=== PATIENT | male | born 1985 | race Caucasian/White ===

== ENCOUNTER 2020-03-22 23:05 | Emergency (ER) | payer SELFPAY ==
[~2020-03-22 23:05] MED LIST: NS 0.9% w/ 40 MEQ KCL 1,000 ML BAG IV ONE
[2020-03-22] MEDS ORDERED: Morphine 10 MG/ML VIAL ONE (23:37)
[2020-03-22] MEDS ORDERED: Ondansetron PF 4 MG/2 ML Vial ONE (23:37)
[2020-03-22 23:50] LABS: Bilirubin Negative (Negative); Blood, Urine Large (Negative); Clarity Slightly Cloudy (Clear); Glucose, Urine (Dipstick) Negative (Negative); Ketone, Urine Negative (Negative); Leukocyte Negative (Negative); Nitrite Negative (Negative); Protein, Urine (Dipstick) Negative (Neg-Trace); Urobilinogen 0.2 mg/dL (Less than 2); pH, Urine 5.5 (5.0-9.0)
[2020-03-22 23:51] LABS: Specific Gravity, Urine 1.018 (1.002-1.036)
[2020-03-22 23:55] LABS: Bacteria/HPF Rare-Few HPF (None Seen); Squamous Epithelial 0-3 HPF (0-3); WBC/HPF 0-3 HPF (0-3)
[2020-03-22 23:57] LABS: ALT (SGPT) 17 U/L (8-55); AST (SGOT) 17 U/L (5-34); Albumin 4.2 g/dL (3.5-5.0); Alkaline Phosphatase 99 U/L (40-110); BUN (Urea Nitrogen) 7 mg/dL (8.9-20.6); Bilirubin, Total 0.3 mg/dL (0.2-1.2); Calc. Creatinine Clearance 0 mL/min (70-130); Calcium 8.7 mg/dL (7.8-10.44); Carbon Dioxide 20 mmol/L (22-29); Estimated GFR-MDRD 88; Globulin 2.7 g/dL (2.4-3.5); Glucose 154 mg/dL (70-105); Lipase 16 U/L (8-78); Protein, Total 6.9 g/dL (6.0-8.3)
[2020-03-23 00:01] LABS: Hemoglobin 15.5 g/dL (14.0-18.0); Mean Corpuscular HGB CONC 32.5 g/dL (32.0-36.0); Mean Corpuscular Hemoglobin 30.3 pg (27.0-31.0); Mean Corpuscular Volume 93.2 fL (78.0-98.0); Mean Platelet Volume 7.1 fL (7.4-10.4); Platelet Count 241 thou/uL (130-400); RBC Distribution Width 12.9 % (11.5-14.5); Red Blood Cell (RBC) Count 5.13 mill/uL (4.70-6.10); White Blood Cell (WBC) Count 16.5 thou/uL (4.8-10.8)
[2020-03-23 00:07] LABS: Lymphocytes 38 % (21-51); Monocytes 7 % (0-10); Reactive Lymphocytes 2 % (0-10)
[2020-03-23 00:08] LABS: Eosinophils 2 % (0-10); Platelet Morphology Comment Appears Adequate; RBC Morphology Normal
[2020-03-23] MEDS ORDERED: Ketorolac Tromethamine 30 MG/ML VIAL ONE (00:10)
[2020-03-23 00:13] LABS: MDiff Complete? YES
[2020-03-23 00:21] LABS: Anion Gap 19 mmol/L (10-20); Chloride 104 mmol/L (98-107); Sodium 140 mmol/L (136-145)
[2020-03-23 00:25] LABS: Potassium 2.9 mmol/L (3.5-5.1)
[2020-03-23] MEDS ORDERED: Potassium Chloride 20 MEQ TAB ONE (00:36)
[2020-03-23 00:42] LABS: Acetaminophen Less than 6.0 mcg/mL (10.0-30.0); Alcohol Less than 10 mg/dL (Less than 10); Magnesium 2.1 mg/dL (1.6-2.6); Salicylate Less than 8.0 mg/dL (15.0-30.0)
[2020-03-23 00:45] LABS: Amphetamine Not Detected (NotDetected); Barbiturates Screen Not Detected (NotDetected); Benzodiazepine Screen Not Detected (NotDetected); Cocaine Metabolite Screen Not Detected (NotDetected); Medtox Control Line Valid? VALID (VALID); Methadone Not Detected (NotDetected); Methamphetamine Not Detected (NotDetected); Opiate Screen Not Detected (NotDetected); Oxycodone Screen Not Detected (NotDetected); Phencyclidine (PCP) Not Detected (NotDetected); THC/Cannabinoid Screen Detected (NotDetected); Tricyclic Screen Not Detected (NotDetected)
[2020-03-23 03:45] LABS: Lactic Acid 1.6 mmol/L (0.5-2.2)
[2020-03-23] MEDS ORDERED: HYDROcodone/Acetaminophen 5/325 mg Tablet ONE (03:59)
--- NOTE | 2020-03-23 07:29 | CT ---
PRELIMINARY REPORT/[facility]/EMERGENCY AFTER HOURS PROCEDURE: This report was discussed with Dr. Felix Resendiz DO by Frankie Rivera on Mar 23, 2020 00:30:00 CDT. Addendum electronically signed by Frankie Rivera on March 23, 2020 12:30:48 AM CDT EXAM: CT Abdomen and Pelvis Without Intravenous Contrast CLINICAL HISTORY: RT. FLANK PAIN R/O KIDNEY STONE TECHNIQUE: Axial computed tomography images of the abdomen and pelvis without intravenous contrast. CONTRAST: None. COMPARISON: None provided. FINDINGS: LUNG BASES: No basilar airspace consolidation or pleural effusion. 3 mm right lower lobe pulmonary nodule. LIVER: Unremarkable. GALLBLADDER AND BILE DUCTS: Unremarkable. No calcified stone. No ductal dilation. PANCREAS: Unremarkable. SPLEEN: Unremarkable. ADRENAL GLANDS: Unremarkable. KIDNEYS, URETERS, AND BLADDER: 3 mm stone in the right UVJ causing mild right hydroureteronephrosis. 2 mm nonobstructing stone in th e upper pole of the left kidney. STOMACH AND BOWEL: No obstruction. No wall thickening. No CT evidence of colitis or acute diverticulitis. APPENDIX: No CT evidence for appendicitis. The appendix has fecalized contents, causing it to be mildly promine nt in size. PERITONEUM: No free fluid. No free air. LYMPH NODES: No lymphadenopathy. REPRODUCTIVE: Unremarkable as visualized. VASCULATURE: No aortic aneurysm. ABDOMINAL WALL AND SOFT TISSUES: Unremarkable. BONES: No fracture or suspicious osseous abnormality. IMPRESSION: 3 mm obstructing stone in the right UVJ causing mild right hydroureteronephrosis. ELECTRONICALLY SIGNED BY: Fam Shepherd MD Mar 23, 2020 12:27:14 AM CDT This report is intended for review by the ordering physician only, in accordance of law. If you recei ve this report in error, please call [facility] at [phone]. FINAL REPORT CT ABDOMEN AND PELVIS WITHOUT CONTRAST: Date: 03/22/[address] was done for evaluation of right flank pain. Comparison is made with prior CT scan d one with contrast dated 07/04/13. There is a tiny, 3.0 mm, calculus in the distal right ureter at the UVJ, or perhaps it has just enter ed the bladder. It causes mild right hydronephrosis and hydroureter. There are a few tiny nonobstruct ing stones in the left kidney. I did not appreciate these stones on the 2013 contrast study, though t he contrast could have easily covered them up. The lung bases are clear. There is a very tiny, 3.0 mm, noncalcified nodule in the right lower lobe. The odds of this being significant at this size and in this age group are extremely small. The most o ne would do is follow-up in 1 year, and even that might be questioned, unless there was a history of cancer elsewhere. There are no effusions. The liver, spleen, pancreas, adrenal glands, gallbladder, and abdominal aorta showed no acute finding s within the limitations of a noncontrast study. The bowel shows no distention, wall thickening, or i nflammatory change. There is no sign of appendicitis or diverticulitis. The CT of the pelvis was remarkable only for the above mentioned stone. There is no inflammatory van ge or free fluid. IMPRESSION: 1. 3.0 mm distal right ureteral calculus at the UVJ, or perhaps recently expressed into the bladder. This results in mild right hydronephrosis. 2. A few nonobstructing calculi are seen in the left kidney. Report in agreement with preliminary reading by [facility]. POS: HOME
== END 2020-03-23 04:03 | disposition home or self-care (01) ==
LOC: BURERS 23:05
DX: N13.2 Hydronephrosis with renal and ureteral calculous obstruction (principal); E87.6 Hypokalemia; F17.210 Nicotine dependence, cigarettes, uncomplicated
CPT/HCPCS: 36415; 74176; 80053; 80306; 80307; 81003; 81015; 83605; 83690; 83735; 85025; 93005; 96361; 96365; 96375; J1885; J2270; J2405; J3480